=== PATIENT | female | born 1980 | race American Indian/Alaskan Native ===

== ENCOUNTER 2016-10-23 15:42 | Emergency (ER) | payer SELFPAY ==
[2016-10-23 16:03] VITALS: BP 113/64
--- NOTE | 2016-10-23 16:03 | EDM.PDOC ---
ED HPI GENERAL MEDICAL PROBLEM - General Chief Complaint: General Stated Complaint: TOOTHACHE Time Seen by Provider: 10/23/16 15:57 - History of Present Illness INITIAL COMMENTS - FREE TEXT/NARRATIVE: HISTORY AND PHYSICAL: History of present illness: Patient 35-year-old female she concern of left jaw pain patient with multiple dental caries with secondary dental fracture she denies fever chills nausea vomiting states it's been going on for 2 days Review of systems: As per history of present illness and below otherwise all systems reviewed and negative. Past medical history: As per history of present illness and as reviewed below otherwise noncontributory. Surgical history: As per history of present illness and as reviewed below otherwise noncontributory. Social history: No reported history of drug or alcohol abuse. Family history: As per history of present illness and as reviewed below otherwise noncontributory. Physical exam: HEENT: Atraumatic, normocephalic, pupils reactive, negative for conjunctival pallor or scleral icterus, mucous membranes moist, throat clear, neck supple, nontender, trachea midline. Multiple dental caries noted patient is generally poor dentition she has multiple secondary dental fractures. Lungs: Clear to auscultation, breath sounds equal bilaterally, chest nontender. Heart: S1S2, regular, negative for clicks, rubs, or JVD. Abdomen: Soft, nondistended, nontender. Negative for masses or hepatosplenomegaly. Negative for costovertebral tenderness. Pelvis: Stable nontender. Genitourinary: Deferred. Rectal: Deferred. Extremities: Atraumatic, negative for cords or calf pain. Neurovascular unremarkable. Neuro: Awake, alert, oriented. Cranial nerves II through XII unremarkable. Cerebellum unremarkable. Motor and sensory unremarkable throughout. Exam nonfocal. Diagnostics: None Therapeutics: None Impression: #1 dentalgia #2 dental caries number 3 dental abscess Definitive disposition and diagnosis as appropriate pending reevaluation and review of above. Left Jaw Pain Score (Numeric/FACES): 7 - Related Data Allergies Allergy/AdvReac Type Severity Reaction Status Date / Time amoxicillin [Amoxicillin] Allergy Airway Verified 10/23/16 15:56 Tightness Home Meds: Home Meds Ferrous Sulfate [Iron] 325 mg PO DAILY 10/23/16 [History] Past Medical History - Past Health History Medical/Surgical History: Denies Medical/Surgical History Other Gastrointestinal History: iron deficiency Musculoskeletal History: Reports: Osteoporosis - Past Surgical History Female Surgical History: Reports: Section, Tubal Ligation Social & Family History - Tobacco Use Smoking Status *Q: Current Every Day Smoker Years of Tobacco use: 14 Packs/Tins Daily: 0.5 Used Tobacco, but Quit: No Second Hand Smoke Exposure: No - Caffeine Use Caffeine Use: Reports: None - Alcohol Use Days Per Week of Alcohol Use: 1 Number of Drinks Per Day: 1 Total Drinks Per Week: 1 - Recreational Drug Use Recreational Drug Use: Yes Drug Use in Last 12 Months: Yes Recreational Drug Type: Reports: Marijuana/Hashish Recreational Drug Use Frequency: Not Used In Over 4 Months ED ROS GENERAL - Review of Systems Review Of Systems: ROS reveals no pertinent complaints other than HPI. ED EXAM, GENERAL - Physical Exam Exam: See Below (See dictation) Departure - Departure Time of Disposition: 16:02 Disposition: Home, Self-Care 01 Condition: good Clinical Impression: Dentalgia, Dental caries, Dental abscess - Discharge Information Forms: ED Department Discharge Additional Instructions: The following information is given to patients seen in the emergency department who are being discharged to home. This information is to outline your options for follow-up care. We provide all patients seen in our emergency department with a follow-up referral. The need for follow-up, as well as the timing and circumstances, are variable depending upon the specifics of your emergency department visit. If you don't have a primary care physician on staff, we will provide you with a referral. We always advise you to contact your personal physician following an emergency department visit to inform them of the circumstance of the visit and for follow-up with them and/or the need for any referrals to a consulting specialist. The emergency department will also refer you to a specialist when appropriate. This referral assures that you have the opportunity for followup care with a specialist. All of these measure are taken in an effort to provide you with optimal care, which includes your followup. Under all circumstances we always encourage you to contact your private physician who remains a resource for coordinating your care. When calling for followup care, please make the office aware that this follow-up is from your recent emergency room visit. If for any reason you are refused follow-up, please contact the [facility] emergency department at and asked to speak to the emergency department charge nurse. Clindamycin Ultram as prescribed follow up dentist 24-48 hours return as needed as discussed
== END 2016-10-23 16:10 | disposition home or self-care (01) ==
LOC: MW.ED 15:42
DX: K04.7 Periapical abscess without sinus (principal); K02.9 Dental caries, unspecified; F17.210 Nicotine dependence, cigarettes, uncomplicated; Z88.1 Allergy status to other antibiotic agents; Z79.899 Other long term (current) drug therapy; Z98.890 Other specified postprocedural states; Z98.51 Tubal ligation status
CPT/HCPCS: 99282; 99283

== ENCOUNTER 2021-05-24 00:22 | Emergency (ER) | payer OTHER ==
[2021-05-24] MEDS ORDERED: Lidocaine 1% with EPINEPHrine 1:100,000 20 ML MDV INJECT ONE (02:28)
[2021-05-24] MEDS ORDERED: Acetaminophen/HYDROcodone 325-10 MG Tab PO ONE (02:33)
--- NOTE | 2021-05-24 03:14 | EDM.PDOC ---
ED HPI GENERAL MEDICAL PROBLEM - General Chief Complaint: Skin Complaint Stated Complaint: HARD LUMP NEAR TAILBONE Time Seen by Provider: 05/24/21 00:43 - History of Present Illness INITIAL COMMENTS - FREE TEXT/NARRATIVE: CHIEF COMPLAINT(S): Lump on left buttock HISTORY OF PRESENT ILLNESS: This is a 40-year-old woman without any significant past medical history who comes to the emergency department with a chief complaint of lump on left buttock. Patient states that earlier this morning she started to notice a lump on her left buttock area. She states that the area is tender to palpation and rates her pain as 2 out of 10. She states that she has never noticed this before and this has never been tender before. She denies any fevers, chills, redness. She denies any pain with bowel movements. She denies any dysuria, hematuria, vaginal bleeding or vaginal discharge. She has not yet tried anything for pain. The pain is exacerbated by sitting and touching it. She denies any other symptoms REVIEW OF SYSTEMS: Constitutional: Denies fever, chills. Eyes: Denies eye pain Ears, Nose, Mouth, & Throat: Denies earache Cardiovascular: Denies chest pain Respiratory: Denies shortness of breath Gastrointestinal: Denies Nausea, vomiting, diarrhea, hematochezia. Genitourinary: Denies hematuria Skin: Positive for lump and tenderness to right buttock MSK: Denies joint pain Neurological: Denies headache Psychiatric: Denies depression PAST MEDICAL HISTORY: As per history of present illness and as reviewed below otherwise noncontributory. SURGICAL HISTORY: As per history of present illness and as reviewed below otherwise noncontributory. SOCIAL HISTORY: As per history of present illness and as reviewed below otherwise noncontributory. FAMILY HISTORY: As per history of present illness and as reviewed below otherwise noncontributory. EXAMINATION OF ORGAN SYSTEMS/BODY AREAS: Constitutional: Blood pressure is 111/54, heart rate 110, respiratory rate 20 with an oxygen saturation 9 9% on room air. Temperature 36 point General: Well-appearing woman who is in no acute distress Psychiatric: Appropriate mood and affect. Eyes: No scleral icterus or conjunctival erythema ENMT: Moist mucous membranes. No pharyngeal erythema Cardiovascular: Regular, rate, and rhythm. No gallops, murmurs, or rubs. Respiratory: Lungs clear to auscultation bilaterally. No wheezes, rales, or rhonchi. Gastrointestinal: Soft, non-tender, non-distended. Normoactive bowel sounds on her left buttock not in the gluteal fold there appears to be an area of induration/firmness that is tender to palpation. There is no overlying cellulitis. Minimal fluctuance. Genitourinary: No suprapubic tenderness Musculoskeletal: Normal range of motion. Skin: No lesions or abrasions. Neurological: Alert, GCS 15 MEDICAL DECISION MAKING AND COURSE IN THE ED WITH INTERPRETATION/REVIEW OF DIAGNOSTIC STUDIES: This is a 40-year-old woman without any significant past medical history who comes to the emergency department with what appears to be a tender, swollen lump with mild fluctuance on her medial left buttock. At this time differential includes abscess therefore we will perform an incision and drainage. The patient was amenable to this plan. We will provide the patient with Thurmond for pain relief. Incision and drainage was performed by myself. The area was prepped with povidone and the skin was locally anesthetized with 1% lidocaine. An incision was made with an 11 blade. No purulent material was obtained. It did appear to be a lipoma. I did place 1 absorbable stitch with 4-0 absorbable suture and placed a Band-Aid. After incision and drainage I did discussed pain management at home and follow- up with surgery for removal of pain. She was amenable to this plan had no further questions. She was given strict return precautions DISPOSITION: The patient was discharged home in stable condition. The patient will follow up with General surgery for evaluation for removal of lipoma CONDITION: Fair PROCEDURES: Incision and drainage FINAL IMPRESSION(S)/DIAGNOSES: 1. Acute buttock swelling secondary to lipoma Fredy Rhodes M.D. coccyx Pain Score (Numeric/FACES): 2 - Related Data Allergies Allergy/AdvReac Type Severity Reaction Status Date / Time amoxicillin [Amoxicillin] Allergy Airway Verified 05/24/21 00:40 Tightness Home Meds: Home Meds Ferrous Sulfate [Iron] 325 mg PO DAILY 10/23/16 [History] Diclofenac Sodium 50 mg PO BID #14 tablet. 05/24/21 [Rx] Past Medical History - Past Health History Medical/Surgical History: Denies Medical/Surgical History Other Gastrointestinal History: iron deficiency [employer] History: Reports: Musculoskeletal History: Reports: Osteoporosis - Infectious Disease History Infectious Disease History: Reports: Chicken Pox - Past Surgical History Female Surgical History: Reports: Section, Tubal Ligation Social & Family History - Family History Family Medical History: No Pertinent Family History - Tobacco Use Tobacco Use Status *Q: Current Every Day Tobacco User Years of Tobacco use: 24 Packs/Tins Daily: 0.5 - Caffeine Use Caffeine Use: Reports: None - Alcohol Use Days Per Week of Alcohol Use: 1 Number of Drinks Per Day: 3 Total Drinks Per Week: 3 - Recreational Drug Use Recreational Drug Use: No ED ROS GENERAL - Review of Systems Review Of Systems: See Below ED EXAM, SKIN/RASH Exam: See Below Course - Vital Signs Last Recorded V/S: Last Vital Signs Temp 36.6 C 05/24/21 00:41 Pulse 86 05/24/21 03:22 Resp 20 05/24/21 03:22 BP 126/78 05/24/21 03:22 Pulse Ox 99 05/24/21 03:22 - Orders/Labs/Meds Meds: Medications Discontinued Medications Generic Name Dose Route Start Last Admin Trade Name Paige PRN Reason Stop Dose Admin Hydrocodone Bitart/Acetaminophen 1 tab 05/24/21 02:33 05/24/21 02:41 Acetaminophen/Hydrocodone 325-10 Mg Tab PO 05/24/21 02:34 1 tab ONETIME ONE Administration Lidocaine/Epinephrine 20 ml 05/24/21 02:28 05/24/21 02:42 Lidocaine 1% With Epinephrine 1:100,000 20 Ml Mdv INJECT 05/24/21 02:29 20 ml ONETIME ONE Administration Departure - Departure Time of Disposition: 03:12 Disposition: Home, Self-Care 01 Condition: Fair Clinical Impression: Lipoma of buttock - Discharge Information *PRESCRIPTION DRUG MONITORING PROGRAM REVIEWED*: No *COPY OF PRESCRIPTION DRUG MONITORING REPORT IN PATIENT SURESH: No Prescriptions: Diclofenac Sodium 50 mg PO BID #14 tablet. Instructions: Lipoma Referrals: PCP,None [Primary Care Provider] - Forms: ED Department Discharge Additional Instructions: You were evaluated today on an emergent basis. At this time it appears that you do have a lipoma. I recommend that you follow-up with general surgery for evaluation for removal given its location and your pain. If you have any pus drainage, redness or worsening symptoms please return to the emergency department. Please take diclofenac twice a day for pain relief. You may ice the area. Please keep the area clean. [facility] - General Surgery Professional Building [address] [place] [address], [address] [place] [address] The patient is informed of any results of their evaluation and diagnostic workup and all questions are answered. They are given discharge instructions and return precautions. The patient is stable for discharge. The patient states they understand and agree with the plan and that they will return if their symptoms get worse or if they have any new concerns. The following information is given to patients seen in the emergency department who are being discharged to home. This information is to outline your options for follow-up care. We provide all patients seen in our emergency department with a follow-up referral. The need for follow-up, as well as the timing and circumstances, are variable depending upon the specifics of your emergency department visit. If you don't have a primary care physician on staff, we will provide you with a referral. We always advise you to contact your personal physician following an emergency department visit to inform them of the circumstance of the visit and for follow-up with them and/or the need for any referrals to a consulting specialist. The emergency department will also refer you to a specialist when appropriate. This referral assures that you have the opportunity for follow-up care with a specialist. All of these measure are taken in an effort to provide you with optimal care, which includes your follow-up. Under all circumstances we always encourage you to contact your private physician who remains a resource for coordinating your care. When calling for follow-up care, please make the office aware that this follow-up is from your recent emergency room visit. If for any reason you are refused follow-up, please contact the [facility] Emergency Department at and asked to speak to the emergency department charge nurse. Sepsis Event Note (ED) - Evaluation Sepsis Screening Result: No Definite Risk
[2021-05-24 05:18] VITALS: BP 126/78; PULSE 86
== END 2021-05-24 03:22 | disposition home or self-care (01) ==
LOC: MW.ED 00:22
DX: D17.39 Benign lipomatous neoplasm of skin and subcutaneous tissue of other sites (principal); Z88.0 Allergy status to penicillin; Z72.0 Tobacco use
CPT/HCPCS: 99282; A9270

== ENCOUNTER 2021-05-27 16:53 | Emergency (ER) | payer OTHER ==
--- NOTE | 2021-05-27 17:36 | EDM.PDOC ---
ED HPI GENERAL MEDICAL PROBLEM - General Chief Complaint: Skin Complaint Stated Complaint: SKIN ABCESS NOT IMPROVING Time Seen by Provider: 05/27/21 17:35 Source of Information: Reports: Patient History Limitations: Reports: No Limitations - History of Present Illness INITIAL COMMENTS - FREE TEXT/NARRATIVE: HISTORY AND PHYSICAL: History of present illness: Patient is a 40-year-old female who presents to the emergency room for complaints of drainage from an I&D site. States she has a lipoma of the left glutes, did have an attempted I&D on 05/24/2021. Since the attempted I&D she has had increased pain and some drainage from the site. She is concerned it is now infected. She has an appointment tomorrow with the general surgeon at 9 AM. Patient denies any fever, chills, headache, change in vision, syncope or near syncope. Denies any chest pain, back pain, shortness of breath or cough. Denies any GI or symptoms. No recent travel or sick contacts. Review of systems: As per history of present illness and below otherwise all systems reviewed and negative. Past medical history: As per history of present illness and as reviewed below otherwise noncontributory. Surgical history: As per history of present illness and as reviewed below otherwise noncontributory. Social history: See social history for further information Family history: As per history of present illness and as reviewed below otherwise noncontributory. Physical exam: General: Well developed and well nourished. Alert and orientated x 3. Nontoxic in appearance and in no acute distress. Vital signs are stable and have been reviewed by me. Nursing notes were reviewed. HEENT: Atraumatic, normocephalic, pupils equal and reactive bilaterally, negative for conjunctival pallor or scleral icterus, mucous membranes moist, TMs normal bilaterally, throat clear, neck supple, nontender, trachea midline. No drooling or trismus noted. No meningeal signs. No hot potato voice noted. Lungs: Clear to auscultation bilaterally. No wheezes, rales, or rhonchi. Chest nontender. Normal work of breathing, no accessory muscles used. Heart: S1S2, regular rate and rhythm without overt murmur, gallops, or rubs. No JVD. No peripheral edema Abdomen: Soft, nondistended, nontender. Skin: 1.5 cm circular firm mass on the left glutes. Surrounding erythema, nonfluctuant, nonindurated. Minimal serosanguineous drainage noted on dressing. Remaining skin is intact, warm, dry. No lesions or rashes noted. Hematologic: No petechiae or purpra. Mucosa appropriate color and normal nail bed color and refill. Extremities: Atraumatic, moves all extremities per self without difficulty or deficits, negative for cords or calf pain. Neurovascular unremarkable. Neuro: Awake, alert, oriented. Cranial nerves II through XII unremarkable. Cerebellum unremarkable. Motor and sensory unremarkable throughout. Exam nonfocal. Psychiatric: Mood and affect are appropriate. Normal thought process. Answering questions appropriately. Please note that the patient was seen and evaluated during the 2019 SARS-CoV-2 novel coronavirus pandemic period. Community viral transmission is ongoing at time of this encounter and the emergency department is operating under pandemic response procedures. Medical Decision Makin05/24/21: Patient was seen in the emergency room for this complaint and the provider did attempt to do an I&D. No purulent drainage was expressed from the site. It was identified as a lipoma. She was encouraged to follow-up with general surgery to have this removed if desired. Patient does have an appointment tomorrow. There is some erythema surrounding the site. Will place on antibiotics. She is requesting something for pain. I have talked with the patient about today's findings, in addition to providing specific details for plan of care. Reassessment at the time of disposition demonstrates that the patient is in no acute distress. The patient is stable for discharge, counseling was provided and we discussed in great detail signs and symptoms that would prompt them to return to the Emergency Department. Medication, follow up and supportive care measures were reviewed and discussed. Voices understanding and is agreeable to plan of care. Denies any further questions or concerns at this time. Diagnostics: None Therapeutics: Bactrim DS Prescription: Bactrim DS, tramadol Impression: Localized skin infection Plan: 1. You were evaluated today on an emergent basis. Please keep the appointment with your surgeon tomorrow. I have placed you on an antibiotic. Keep the skin clean and dry. 2. You can alternate Tylenol and ibuprofen as needed for pain and fever management. 3. We encourage you to follow up with your primary care provider and/or recommended specialist in the next few days for re-evaluation and further care/management. 4. If your symptoms should worsen, new symptoms develop or any of the signs and symptoms we discussed should arise please return to the emergency room or call 911 (if needed). Definitive disposition and diagnosis as appropriate pending reevaluation and review of above. Buttock Pain Score (Numeric/FACES): 7 - Related Data Allergies Allergy/AdvReac Type Severity Reaction Status Date / Time amoxicillin [Amoxicillin] Allergy Airway Verified 05/27/21 17:10 Tightness Home Meds: Home Meds Ferrous Sulfate [Iron] 325 mg PO DAILY 10/23/16 [History] Diclofenac Sodium 50 mg PO BID #14 tablet. 05/24/21 [Rx] Sulfamethoxazole/Trimethoprim [Bactrim Ds Tablet] 1 each PO BID 5 Days #10 tablet 05/27/21 [Rx] traMADol [Ultram] 50 mg PO Q4H PRN #15 tab 05/27/21 [Rx] Past Medical History - Past Health History Medical/Surgical History: Denies Medical/Surgical History Other Gastrointestinal History: iron deficiency [employer]ER History: Reports: Musculoskeletal History: Reports: Osteoporosis - Infectious Disease History Infectious Disease History: Reports: Chicken Pox - Past Surgical History Female Surgical History: Reports: Section, Tubal Ligation Social & Family History - Family History Family Medical History: No Pertinent Family History - Caffeine Use Caffeine Use: Reports: None ED ROS GENERAL - Review of Systems Review Of Systems: Comprehensive ROS is negative, except as noted in HPI. ED EXAM, SKIN/RASH Exam: See Below (See dictation) Course - Vital Signs Last Recorded V/S: Last Vital Signs Temp 98.7 F 05/27/21 18:19 Pulse 73 05/27/21 18:19 Resp 17 05/27/21 18:19 BP 104/63 05/27/21 18:19 Pulse Ox 98 05/27/21 18:19 - Orders/Labs/Meds Meds: Medications Discontinued Medications Generic Name Dose Route Start Last Admin Trade Name Freq PRN Reason Stop Dose Admin Trimethoprim/Sulfamethoxazole 1 tab 05/27/21 17:51 05/27/21 18:03 Sulfamethoxazole/Trimethoprim 800-160 Mg Tab PO 05/27/21 17:52 1 tab ONETIME ONE Administration Departure - Departure Time of Disposition: 17:57 Disposition: Home, Self-Care 01 Clinical Impression: Localized infection of skin - Discharge Information Prescriptions: Sulfamethoxazole/Trimethoprim [Bactrim Ds Tablet] 1 each PO BID 5 Days #10 tablet traMADol [Ultram] 50 mg PO Q4H PRN #15 tab PRN Reason: Pain Instructions: Lipoma Removal, Care After, Lipoma Referrals: PCP,None [Primary Care Provider] - Forms: ED Department Discharge Additional Instructions: The following information is given to patients seen in the emergency department who are being discharged to home. This information is to outline your options for follow-up care. We provide all patients seen in our emergency department with a follow-up referral. The need for follow-up, as well as the timing and circumstances, are variable de pending upon the specifics of your emergency department visit. If you don't have a primary care physician on staff, we will provide you with a referral. We always advise you to contact your personal physician following an emergency department visit to inform them of the circumstance of the visit and for follow-up with them and/or the need for any referrals to a consulting specialist. The emergency department will also refer you to a specialist when appropriate. This referral assures that you have the opportunity for follow-up care with a specialist. All of these measure are taken in an effort to provide you with optimal care, which includes your follow-up. Under all circumstances we always encourage you to contact your private physician who remains a resource for coordinating your care. When calling for follow-up care, please make the office aware that this follow-up is from your recent emergency room visit. If for any reason you are refused follow-up, please contact the [facility] Emergency Department at and asked to speak to the emergency department charge nurse. [facility] [address] [place] [address] [address] Thank you for choosing the [facility] emergency department in [place] for your medical needs today. It was a pleasure caring for you. Today you were seen in the emergency department for localized skin infection Your prescription was electronically sent to: [place] pharmacy Medication/Directions: Tramadol, 1 tab every 4-6 hours as needed for pain. Bactrim DS, antibiotic. Please take as directed. 1. You were evaluated today on an emergent basis. Please keep the appointment with your surgeon tomorrow. I have placed you on an antibiotic. Keep the skin clean and dry. 2. You can alternate Tylenol and ibuprofen as needed for pain and fever management. 3. We encourage you to follow up with your primary care provider and/or recommended specialist in the next few days for re-evaluation and further care/management. 4. If your symptoms should worsen, new symptoms develop or any of the signs and symptoms we discussed should arise please return to the emergency room or call 911 (if needed). Sepsis Event Note (ED) - Focused Exam Vital Signs: Vital Signs Temp Pulse Resp BP Pulse Ox 05/27/21 18:19 98.7 F 73 17 104/63 98 05/27/21 17:10 97.3 F 81 16 102/58 L 100
[2021-05-27] MEDS ORDERED: Sulfamethoxazole/Trimethoprim 800-160 MG Tab PO ONE (17:51)
[2021-05-27 18:19] VITALS: BP 104/63; PULSE 73
== END 2021-05-27 18:21 | disposition home or self-care (01) ==
LOC: MW.ED 16:53
DX: L08.9 Local infection of the skin and subcutaneous tissue, unspecified (principal); Z88.0 Allergy status to penicillin
CPT/HCPCS: 99282; A9270

== ENCOUNTER 2021-09-10 07:21 | Inpatient (IN) | payer OTHER ==
[2021-09-10] MEDS ORDERED: Sodium Chloride 0.9% 1,000 ML IV ONE ×2 (07:38→08:42)
[2021-09-10] MEDS ORDERED: Morphine 4 MG/ML VIAL IVPUSH ONE ×2 (07:38→10:04)
[2021-09-10] MEDS ORDERED: Clindamycin Phosphate in D5W 600 MG in Premix Bag 1 BAG IV ONE ×2 (07:38)
[2021-09-10] MEDS ORDERED: Ondansetron 4 MG/2 ML SDV IVPUSH ONE (07:38)
[2021-09-10 08:50] LABS: BLOOD UREA NITROGEN,BUN 8 mg/dL (7.0-18.0); CARBON DIOXIDE,CO2 22.7 mmol/L (21.0-32.0); CHLORIDE,CL 104 mmol/L (98-107); GLUCOSE RANDOM 105 mg/dL (74-106); POTASSIUM,K 3.6 mmol/L (3.5-5.1); SODIUM,NA 137 mmol/L (136-145)
[2021-09-10] MEDS ORDERED: Iopamidol 755 MG/ML 500 ML Multipack Bottle IVPUSH STA (09:38)
[2021-09-10] MEDS ORDERED: HYDROmorphone 1 MG/ML Syringe IVPUSH ONE (10:06)
[2021-09-10] MEDS ORDERED: Lidocaine 1% with EPINEPHrine 1:100,000 10 ML MDV INJECT ONE (10:40)
[2021-09-10] MEDS ORDERED: Sodium Chloride 0.9% 2.5 ML Syringe FLUSH PRN (15:14)
[2021-09-10] MEDS ORDERED: Sodium Chloride 0.9% 10 ML Syringe FLUSH PRN (15:14)
[2021-09-10] MEDS ORDERED: Docusate Sodium 100 MG Cap PO PRN (15:30)
[2021-09-10] MEDS ORDERED: Morphine 4 MG/ML VIAL IVPUSH PRN (15:30)
[2021-09-10] MEDS ORDERED: Ondansetron 4 MG/2 ML SDV IVPUSH PRN (15:30)
[2021-09-10] MEDS: Lactated Ringers 1,000 ML IV SCH (16:46)
[2021-09-10] MEDS: Clindamycin Phosphate in D5W 600 MG in Premix Bag 1 BAG IV SCH ×4 (16:47→23:01)
[2021-09-10] MEDS: oxyCODONE 5 MG Tab PO PRN ×2 (16:54→22:49)
[2021-09-10] MEDS: Acetaminophen 325 MG Tab PO PRN (21:11)
[2021-09-11] MEDS: Lactated Ringers 1,000 ML IV SCH ×3 (01:25→21:46)
[2021-09-11] MEDS: oxyCODONE 5 MG Tab PO PRN ×4 (02:42→18:45)
[2021-09-11] MEDS ORDERED: ferumoxytoL 510 MG in Sodium Chloride 0.9% 100 ML IV ONE (08:19)
[2021-09-11 08:32] LABS: BLOOD UREA NITROGEN,BUN 3 mg/dL (7.0-18.0); CARBON DIOXIDE,CO2 21.4 mmol/L (21.0-32.0); CHLORIDE,CL 103 mmol/L (98-107); GLUCOSE RANDOM 106 mg/dL (74-106); POTASSIUM,K 3.6 mmol/L (3.5-5.1); SODIUM,NA 135 mmol/L (136-145)
[2021-09-11] MEDS: Clindamycin Phosphate in D5W 600 MG in Premix Bag 1 BAG IV SCH ×6 (08:43→23:45)
[2021-09-11] MEDS ORDERED: methylPREDNISolone Sodium Succinate 125 MG/2 ML SDV IVPUSH ONE (11:26)
[2021-09-11] MEDS ORDERED: EPINEPHrine 1 MG/1 ML Amp IM PRN (11:27)
[2021-09-11] MEDS ORDERED: Famotidine 20 MG/2 ML SDV IVPUSH SCH (11:30)
[2021-09-11] MEDS: Loratadine 10 MG Tab PO SCH (11:55)
[2021-09-11] MEDS ORDERED: Magnesium Sulfate/Water 2 GM in Premix Bag 1 BAG IV ONE (12:00)
[2021-09-11] MEDS: Acetaminophen 325 MG Tab PO PRN (21:48)
[2021-09-12] MEDS: Lactated Ringers 1,000 ML IV SCH ×3 (05:19→15:52)
[2021-09-12] MEDS: oxyCODONE 5 MG Tab PO PRN ×4 (05:59→20:25)
[2021-09-12 06:27] LABS: BLOOD UREA NITROGEN,BUN 7 mg/dL (7.0-18.0); CARBON DIOXIDE,CO2 23.1 mmol/L (21.0-32.0); CHLORIDE,CL 108 mmol/L (98-107); GLUCOSE RANDOM 131 mg/dL (74-106); POTASSIUM,K 3.7 mmol/L (3.5-5.1); SODIUM,NA 140 mmol/L (136-145)
[2021-09-12] MEDS: Loratadine 10 MG Tab PO SCH (08:36)
[2021-09-12] MEDS: Clindamycin Phosphate in D5W 600 MG in Premix Bag 1 BAG IV SCH ×6 (08:41→23:53)
[2021-09-12] MEDS: Acetaminophen 325 MG Tab PO PRN ×2 (09:14→23:52)
[2021-09-13] MEDS: Lactated Ringers 1,000 ML IV SCH ×2 (01:43→10:13)
[2021-09-13 06:19] LABS: BLOOD UREA NITROGEN,BUN 4 mg/dL (7.0-18.0); CARBON DIOXIDE,CO2 26.3 mmol/L (21.0-32.0); CHLORIDE,CL 108 mmol/L (98-107); GLUCOSE RANDOM 94 mg/dL (74-106); POTASSIUM,K 3.6 mmol/L (3.5-5.1); SODIUM,NA 142 mmol/L (136-145)
[2021-09-13] MEDS: Clindamycin Phosphate in D5W 600 MG in Premix Bag 1 BAG IV SCH ×6 (08:11→23:11)
[2021-09-13] MEDS: Loratadine 10 MG Tab PO SCH (08:16)
[2021-09-13] MEDS: oxyCODONE 5 MG Tab PO PRN ×3 (08:24→20:12)
[2021-09-13] MEDS: Acetaminophen 325 MG Tab PO PRN (23:10)
[2021-09-14] MEDS: oxyCODONE 5 MG Tab PO PRN ×3 (01:20→14:06)
[2021-09-14 06:23] LABS: BLOOD UREA NITROGEN,BUN 5 mg/dL (7.0-18.0); CARBON DIOXIDE,CO2 26.4 mmol/L (21.0-32.0); CHLORIDE,CL 106 mmol/L (98-107); GLUCOSE RANDOM 85 mg/dL (74-106); POTASSIUM,K 3.9 mmol/L (3.5-5.1); SODIUM,NA 140 mmol/L (136-145)
[2021-09-14] MEDS: Clindamycin Phosphate in D5W 600 MG in Premix Bag 1 BAG IV SCH ×2 (08:59)
[2021-09-14] MEDS: Loratadine 10 MG Tab PO SCH (08:59)
[2021-09-14 09:19] VITALS: PULSE 57
[2021-09-14] MEDS: Acetaminophen 325 MG Tab PO PRN (11:21)
[2021-09-14 12:04] VITALS: BP 121/70
== END 2021-09-14 14:30 | disposition home or self-care (01) | DRG 603 ==
LOC: MW.ED 07:21 → MW.MS 14:15
PROVIDERS: ADMIT Student in an Organized Health Care Education/Training Program; ATTEND Student in an Organized Health Care Education/Training Program
PROC: 30233N1 Transfusion of Nonautologous Red Blood Cells into Peripheral Vein, Percutaneous Approach (ICD-10-PCS; principal; 2021-09-11)
DX: L03.211 Cellulitis of face (principal); L03.221 Cellulitis of neck; L02.01 Cutaneous abscess of face; E61.1 Iron deficiency; F17.210 Nicotine dependence, cigarettes, uncomplicated; M81.0 Age-related osteoporosis without current pathological fracture; F17.200 Nicotine dependence, unspecified, uncomplicated; D50.8 Other iron deficiency anemias; F15.10 Other stimulant abuse, uncomplicated; F19.10 Other psychoactive substance abuse, uncomplicated; K08.9 Disorder of teeth and supporting structures, unspecified; Z20.822 Contact with and (suspected) exposure to COVID-19; Z79.899 Other long term (current) drug therapy; Z98.51 Tubal ligation status; Z98.891 History of uterine scar from previous surgery; Z88.1 Allergy status to other antibiotic agents
CPT/HCPCS: 10060; 36415; 70491; 80053; 82728; 82746; 83550; 83605; 84703; 85025; 86850; 86900; 86901; 86920; 87040 ×2; 87070; 87205; 87635; 96365; 96367; 96375; 99284; J1170; J2270; J2405; J3370; J3490; J7030 ×2; J7050; Q9967; 36430; 80048; 80202; 80305-QW; 81001; 83735; 85045; 87077; 87186; 99221; 99231; 99232; 99238; A9270-GY; J2930; J3475; J7120; P9016; Q0138; U0002

== ENCOUNTER 2023-06-06 11:13 | Emergency (ER) | payer BC, MEDICAID ==
[2023-06-06 11:26] VITALS: BP 121/60
[2023-06-06] MEDS ORDERED: Acetaminophen 500 MG Tab PO ONE (11:49)
[2023-06-06] MEDS ORDERED: Ibuprofen 600 MG Tab PO ONE (11:49)
[2023-06-06 12:09] LABS: CORONAVIRUS COVID-19 NAA NEGATIVE (NEGATIVE); INFLUENZA A NAA NEGATIVE (NEGATIVE); INFLUENZA B NAA NEGATIVE (NEGATIVE); RESPIRATORY SYNCYTIAL VIR NAA NEGATIVE (NEGATIVE)
[2023-06-06 13:25] LABS: APPEARANCE,URINE SLT CLOUDY; BILIRUBIN,URINE NEGATIVE (NEGATIVE); COLOR,URINE YELLOW; GLUCOSE,URINE NEGATIVE (NEGATIVE); KETONES,URINE NEGATIVE (NEGATIVE); LEUKOCYTE ESTERASE,URINE TRACE (NEGATIVE); NITRITE,URINE POSITIVE (NEGATIVE); OCCULT BLOOD,URINE NEGATIVE (NEGATIVE); PROTEIN,URINE NEGATIVE (NEGATIVE); UROBILINOGEN,URINE 0.2 EU/dL (<2.0)
[2023-06-06 13:33] LABS: BACTERIA,URINE 4+ (NEGATIVE); MUCUS,URINE LIGHT (NONE-MOD); RBC,URINE 0-2 (0-2/HPF); SQUAMOUS EPITHELIAL CELLS,UR OCCASIONAL
[2023-06-06 14:13] VITALS: PULSE 103
== END 2023-06-06 14:13 | disposition home or self-care (01) ==
LOC: MW.ED 11:13
DX: N12 Tubulo-interstitial nephritis, not specified as acute or chronic (principal); F17.200 Nicotine dependence, unspecified, uncomplicated; Z88.0 Allergy status to penicillin; Z20.822 Contact with and (suspected) exposure to COVID-19
CPT/HCPCS: 0241U; 81001; 87086; 93005; 99284; A9270; 87088; 87186

== ENCOUNTER 2023-12-12 20:16 | Emergency (ER) | payer MEDICAID, OTHER ==
[2023-12-12 20:37] LABS: BASOPHILS ABSOLUTE AUTO 0.07 K/uL (0.00-0.20); BASOPHILS PERCENT AUTO 0.8 % (0.0-1.0); EOSINOPHILS ABSOLUTE AUTO 0.49 K/uL (0.00-0.45); EOSINOPHILS PERCENT AUTO 5.3 % (0.0-6.0); HEMATOCRIT 32.3 % (37.0-47.0); HEMOGLOBIN 9.3 g/dL (12.0-16.0); IMMATURE GRAN ABSOLUTE AUTO 0.02 K/uL (0.00-0.05); IMMATURE GRAN PERCENT AUTO 0.2 % (0.0-0.4); LYMPHOCYTES ABSOLUTE AUTO 2.06 K/uL (1.00-4.80); LYMPHOCYTES PERCENT AUTO 22.5 % (24.0-44.0); MEAN CORPUSCULAR HEMOGLOBIN 21.3 pg (28.0-32.0); MEAN CORPUSCULAR HGB CONC 28.8 g/dL (32.0-36.0); MEAN CORPUSCULAR VOLUME 74.1 fL (83.0-99.0); MEAN PLATELET VOLUME 8.4 fL (9.4-12.3); MONOCYTES PERCENT AUTO 5.5 % (0.0-8.0); NEUTROPHILS ABSOLUTE AUTO 6.03 K/uL (1.80-7.70); NEUTROPHILS PERCENT AUTO 65.7 % (41.0-71.0); PLATELET COUNT,PLT 442 K/uL (150-400); RED BLOOD CELL COUNT 4.36 M/uL (4.10-5.30); WHITE BLOOD CELL COUNT,WBC 9.17 K/uL (3.9-11.3)
[2023-12-12 21:14] LABS: A/G RATIO 1.1 (0.9-1.6); ALANINE AMINOTRANSFERASE,ALT 20 IU/L (14-63); ALBUMIN 3.4 g/dL (3.4-5.0); ALKALINE PHOSPHATASE 97 U/L (46-116); ASPARTATE AMNIOTRANSFERASE,AST 9 IU/L (15-37); BILIRUBIN TOTAL 0.2 mg/dL (0.2-1.0); BLOOD UREA NITROGEN,BUN 8 mg/dL (7.0-18.0); CALCIUM 8.6 mg/dL (8.5-10.1); CARBON DIOXIDE,CO2 25.9 mmol/L (21.0-32.0); CHLORIDE,CL 107 mmol/L (98-107); CREATININE 0.6 mg/dL (0.6-1.0); GLUCOSE RANDOM 87 mg/dL (74-106); LIPASE 28 U/L (16-77); POTASSIUM,K 3.9 mmol/L (3.5-5.1); PROTEIN TOTAL,TP 6.6 g/dL (6.4-8.2); SODIUM,NA 141 mmol/L (136-145)
[2023-12-12 21:18] LABS: ESTIMATED GFR 116 mL/min (>60)
[2023-12-12] MEDS: Ondansetron 4 MG/2 ML SDV IVPUSH ONE (21:36)
[2023-12-12] MEDS: Morphine 2 MG/ML SYRINGE IVPUSH ONE (21:38)
[2023-12-12] MEDS: Sodium Chloride 0.9% 2.5 ML Syringe FLUSH PRN (21:39)
[2023-12-12] MEDS: Sodium Chloride 0.9% 10 ML Syringe FLUSH PRN (21:39)
[2023-12-12] MEDS: Iopamidol 755 MG/ML 500 ML Multipack Bottle IVPUSH ONE (21:55)
[2023-12-12 22:50] LABS: APPEARANCE,URINE CLEAR; BILIRUBIN,URINE NEGATIVE (NEGATIVE); COLOR,URINE YELLOW; GLUCOSE,URINE NEGATIVE (NEGATIVE); KETONES,URINE NEGATIVE (NEGATIVE); LEUKOCYTE ESTERASE,URINE NEGATIVE (NEGATIVE); NITRITE,URINE NEGATIVE (NEGATIVE); OCCULT BLOOD,URINE SMALL (NEGATIVE); PH,URINE 6.5 (5.0-8.0); PROTEIN,URINE NEGATIVE (NEGATIVE); UROBILINOGEN,URINE 0.2 EU/dL (<2.0)
[2023-12-12 22:58] LABS: BACTERIA,URINE RARE (NEGATIVE); EPITHELIAL CELLS,URINE RARE (NONE-FEW); RBC,URINE 0-1 (0-2/HPF); WBC,URINE NONE SEEN (0-5/HPF)
[2023-12-12] MEDS: Cefdinir 300 MG Cap PO ONE (23:09)
[2023-12-12 23:36] VITALS: BP 99/63; PULSE 63
== END 2023-12-12 23:34 | disposition home or self-care (01) ==
LOC: MW.ED 20:16
DX: N12 Tubulo-interstitial nephritis, not specified as acute or chronic (principal); F17.210 Nicotine dependence, cigarettes, uncomplicated; Z88.0 Allergy status to penicillin; Z79.899 Other long term (current) drug therapy
CPT/HCPCS: 36415; 74177; 80053; 81001; 83690; 84703; 85025; 96374; 99284; A9270; J2405; J3490; Q9967

== ENCOUNTER 2023-12-27 12:33 | Emergency (ER) | payer MEDICAID, OTHER ==
[2023-12-27 13:41] VITALS: BP 125/74; PULSE 74
== END 2023-12-27 13:40 | disposition home or self-care (01) ==
LOC: MW.ED 12:33
DX: Z01.419 Encounter for gynecological examination (general) (routine) without abnormal findings (principal); F17.210 Nicotine dependence, cigarettes, uncomplicated
CPT/HCPCS: 99282; 99283

== ENCOUNTER 2024-12-28 22:43 | Emergency (ER) | payer MEDICAID ==
[2024-12-28] MEDS: Acetaminophen/HYDROcodone 325-5 MG Tab PO ONE (23:27)
[2024-12-28 23:51] VITALS: BP 121/50; PULSE 77
== END 2024-12-28 23:51 | disposition home or self-care (01) ==
LOC: MW.ED 22:43
DX: T19.2XXA Foreign body in vulva and vagina, initial encounter (principal); Z88.1 Allergy status to other antibiotic agents; Z88.0 Allergy status to penicillin; Z79.899 Other long term (current) drug therapy; W44.8XXA Other foreign body entering into or through a natural orifice, initial encounter; Y93.89 Activity, other specified
CPT/HCPCS: 99283; A9270; 99284